=== PATIENT | female | born 1990 ===

== ENCOUNTER 2021-09-06 07:22 | Inpatient (IN) | payer OTHER ==
[2021-09-06] MEDS ORDERED: DEXTROSE 5%-LACTATED RINGERS 1,000 ML IV SCH ×2 (09:00→14:30)
[2021-09-06 11:11] VITALS: BMI 21.4
[2021-09-06 11:42] LABS: BASO % 0.3 % (0-2.0); EOS % 0.1 % (0-4.5); HEMATOCRIT 34.8 % (32.4-45.2); HEMOGLOBIN 11.7 GM/dL (10.7-15.3); LYMPH % 20.8 % (8-40); MCHC 33.6 g/dl (32.0-36.0); MEAN CELL VOLUME 86.2 fl (80-96); MONO % 11.9 % (3.8-10.2); NEUT % 66.9 % (42.8-82.8); PLATELET COUNT 112 10^3/uL (134-434); RBC 4.04 M/mm3 (3.60-5.2); RDW 14.2 % (11.6-15.6); WHITE BLOOD COUNT 6.7 K/mm3 (4.0-10.0)
[2021-09-06 11:44] LABS: INR 0.89 (0.83-1.09); PROTHROMBIN TIME (PATIENT) 10.2 SEC (9.7-13.0)
[2021-09-06 11:47] LABS: ACTIVATED PTT 27.8 SECONDS (25.2-36.5)
[2021-09-06 11:57] LABS: CALCIUM 8.5 mg/dL (8.5-10.1)
[2021-09-06 11:58] LABS: BLOOD UREA NITROGEN 4.8 mg/dL (7-18)
[2021-09-06 12:01] LABS: CREATININE 0.7 mg/dL (0.55-1.3)
[2021-09-06] MEDS ORDERED: OXYTOCIN 30 UNITS in 0.9% NS 30 UNIT/500 ML INFUS.BAG IVPB SCH (14:30)
[2021-09-06] MEDS ORDERED: OXYTOCIN 30 UNITS in 0.9% NS 30 UNIT/500 ML INFUS.BAG IVPB ONE (14:38)
[2021-09-06] MEDS ORDERED: PROMETHAZINE HCL 25 MG/1 ML VIAL IVPUSH ONE (15:08)
[2021-09-06] MEDS ORDERED: BUTORPHANOL TARTRATE 1 MG/ML VIAL IVPB ONE (15:08)
[2021-09-06] MEDS ORDERED: ELECTROLYTE-148 SOLN 1,000 ML IV SCH ×2 (16:30→17:00)
[2021-09-06] MEDS ORDERED: CITRIC ACID/SODIUM CITRATE 30 ML UNIT-DOSE CUP PO ONE (16:30)
[2021-09-06] MEDS ORDERED: ONDANSETRON 4 MG/2 ML VIAL IVPUSH PRN (16:38)
[2021-09-06] MEDS ORDERED: morphine SULFATE/PF 1 MG/2 ML (2cc Syringe - QUVA) EP ONE (16:38)
[2021-09-06] MEDS ORDERED: morphine SULFATE/PF 1 MG/2 ML (2cc Syringe - QUVA) ONE (16:55)
[2021-09-06] MEDS ORDERED: ceFAZolin SODIUM 1 GM VIAL ONE (17:01)
[2021-09-06] MEDS ORDERED: SODIUM CHLORIDE 0.9% P/F 10 ML VIAL IJ ONE (17:01)
[2021-09-06] MEDS ORDERED: ePHEDrine SULFATE 50 MG/1 ML AMPULE ONE (17:16)
[2021-09-06] MEDS ORDERED: PHENYLEPHRINE HCL 10 MG/1 ML SINGLE DOSE VIAL ONE (17:16)
[2021-09-06] MEDS ORDERED: OXYTOCIN 10 UNITS/ML VIAL ONE ×2 (17:35→17:46)
[2021-09-06] MEDS ORDERED: ACETAMINOPHEN 325 MG TABLET (FP) PO PRN (18:58)
[2021-09-06] MEDS ORDERED: METHYLERGONOVINE MALEATE 0.2 MG/1 ML AMP IM PRN (18:58)
[2021-09-06] MEDS ORDERED: IBUPROFEN 800 MG/8 ML IJ IVPB PRN (18:58)
[2021-09-06] MEDS ORDERED: OXYTOCIN 20 UNITS in 0.9% NS 20 UNIT/1,000 ML INFUS.BAG IV SCH (19:00)
[2021-09-07] MEDS: SIMETHICONE 80 MG TAB.CHEW (FP) PO PRN ×2 (05:59→15:49)
[2021-09-07] MEDS ORDERED: oxyCODONE HCL 5 MG TABLET PO PRN (06:58)
[2021-09-07 07:09] LABS: BASO % 0.2 % (0-2.0); HEMATOCRIT 27.5 % (32.4-45.2); HEMOGLOBIN 9.4 GM/dL (10.7-15.3); LYMPH % 12.1 % (8-40); MCH 29.7 pg (25.7-33.7); MCHC 34.3 g/dl (32.0-36.0); MEAN CELL VOLUME 86.8 fl (80-96); MEAN PLT VOLUME 10.2 fl (7.5-11.1); MONO % 10.1 % (3.8-10.2); NEUT % 77.6 % (42.8-82.8); PLATELET COUNT 100 10^3/uL (134-434); RBC 3.17 M/mm3 (3.60-5.2); RDW 13.8 % (11.6-15.6); WHITE BLOOD COUNT 10.8 K/mm3 (4.0-10.0)
[2021-09-07] MEDS: PRENATAL VITAMINS W/ FOLIC ACID TABLET (FP) PO SCH (10:13)
[2021-09-07] MEDS: IBUPROFEN 600 MG TABLET (FP) PO PRN (15:49)
[2021-09-07] MEDS ORDERED: BISACODYL 10 MG SUPP.RECT RC PRN (18:58)
[2021-09-07] MEDS ORDERED: diphenhydrAMINE HCL 25 MG CAPSULE (FP) PO PRN (20:00)
[2021-09-07] MEDS: SENNOSIDES/DOCUSATE COMBO (SENNA PLUS) TABLET (UD) PO PRN (20:59)
[2021-09-08] MEDS: SIMETHICONE 80 MG TAB.CHEW (FP) PO PRN ×2 (01:18→20:33)
[2021-09-08] MEDS: oxyCODONE HCL 5 MG TABLET PO PRN ×2 (01:18→23:22)
[2021-09-08] MEDS ORDERED: DIPHTH,PERTUSS(ACELL),TET 0.5 ML DISP.SYRIN IM ONE (10:00)
[2021-09-08] MEDS: PRENATAL VITAMINS W/ FOLIC ACID TABLET (FP) PO SCH (10:46)
[2021-09-08] MEDS: IBUPROFEN 600 MG TABLET (FP) PO PRN ×2 (11:15→20:33)
[2021-09-08] MEDS: SENNOSIDES/DOCUSATE COMBO (SENNA PLUS) TABLET (UD) PO PRN (20:34)
[2021-09-08 20:36] VITALS: PULSE 96
[2021-09-09 09:14] VITALS: BP 109/76; RESP 20; TEMP 98.5
[2021-09-09] MEDS: PRENATAL VITAMINS W/ FOLIC ACID TABLET (FP) PO SCH (10:31)
[2021-09-09] MEDS: IBUPROFEN 600 MG TABLET (FP) PO PRN (10:35)
[2021-09-09 11:27] LABS: POC NITRAZINE POS
== END 2021-09-09 12:34 | disposition home or self-care (01) | DRG 540 ==
LOC: JDEL 07:22 → JLDR 09:05 → J3W 20:30
PROVIDERS: ADMIT Obstetrics & Gynecology; ATTEND Obstetrics & Gynecology
PROC: 10D00Z1 Extraction of Products of Conception, Low, Open Approach (ICD-10-PCS; principal; 2021-09-06)
DX: O76 Abnormality in fetal heart rate and rhythm complicating labor and delivery (principal); O69.81X0 Labor and delivery complicated by cord around neck, without compression, not applicable or unspecified; Z3A.39 39 weeks gestation of pregnancy; Z37.0 Single live birth
CPT/HCPCS: 36415; 59025; 80048; 83986-QW; 85025; 85610; 85730; 86780; 86850; 86900; 86901; 88307-TC; 90715; C9803-CS; U0003; U0005